=== PATIENT | female | born 1960 | race Caucasian/White ===

== ENCOUNTER 2017-11-25 20:24 | Emergency (ER) | payer OTHER ==
[~2017-11-25] VITALS: Ht 162.6 cm; Wt 119.5 kg
[~2017-11-25 20:24] MED LIST: CLEOCIN300 MG PO; FISH OIL 1,0001 EAC7 PO; MOTRIN IB200 MG PO; PRAVASTATIN SOD10 MG PO
[2017-11-25 20:28] VITALS: BP 156/81
[2017-11-25 22:24] LABS: HEMATOCRIT 43.5 % (36.0-46.0); HEMOGLOBIN 14.8 G/DL (11.9-15.5); MCH 28.2 PG (29.0-34.0); MCV 82.9 FL (83-99); PLATELET COUNT 408 K/uL (156-360); RBC DIS.WIDTH-CV 13.2 % (11.8-14.6); RBC DIS.WIDTH-SD 39.2 % (39-53); RED BLOOD COUNT 5.25 M/uL (3.80-5.20)
[2017-11-25 22:37] LABS: CHLORIDE 108 mEq/L (99-109); POTASSIUM 4.1 mEq/L (3.7-5.4); SODIUM 143 mEq/L (136-147)
[2017-11-25 22:39] LABS: GLUCOSE 116 mg/dL (70-99)
[2017-11-25 22:43] LABS: CREATININE 0.8 mg/dL (0.6-1.3); GFR ESTIMATE (CALCULATED) > 59 mL/min/
[2017-11-25 22:44] LABS: UREA NITROGEN (BUN) 19 mg/dL (9-23)
== END 2017-11-26 00:52 | disposition left against medical advice (07) ==
LOC: EME 20:24
PROVIDERS: Physician Assistant
DX: R22.1 Localized swelling, mass and lump, neck (principal); M54.2 Cervicalgia; E11.9 Type 2 diabetes mellitus without complications; E78.5 Hyperlipidemia, unspecified; Z88.0 Allergy status to penicillin; Z88.1 Allergy status to other antibiotic agents; Z88.8 Allergy status to other drugs, medicaments and biological substances
CPT/HCPCS: 70491; 80048; 85027

== ENCOUNTER 2018-02-13 06:29 | Emergency (ER) | payer OTHER ==
[~2018-02-13] VITALS: Ht 162.6 cm; Wt 114.2 kg
[2018-02-13 07:32] LABS: BASOPHIL (%) 0.7 % (0-1); EOSINOPHIL (%) 1.5 % (0-5); EOSINOPHIL COUNT 0.1 K/uL (0-0.3); HEMATOCRIT 44.5 % (36.0-46.0); HEMOGLOBIN 15.4 G/DL (11.9-15.5); IMMATURE GRANULOCYTE (%) 0.2 % (0.0-0.7); LYMPHOCYTE (%) 23.3 % (15-42); LYMPHOCYTE COUNT 1.4 K/uL (1.0-2.8); MCH 28.2 PG (29.0-34.0); MCHC 34.6 G/DL (30.0-36.0); MCV 81.4 FL (83-99); MONOCYTE (%) 6.8 % (3-12); MONOCYTE COUNT 0.4 K/uL (0-0.8); NEUTROPHIL (%) 67.5 % (45-76); NEUTROPHIL COUNT 3.9 K/uL (1.8-6.4); PLATELET COUNT 441 K/uL (156-360); RBC DIS.WIDTH-CV 13.5 % (11.8-14.6); RBC DIS.WIDTH-SD 39.6 % (39-53); RED BLOOD COUNT 5.47 M/uL (3.80-5.20); WHITE BLOOD COUNT 5.8 K/uL (4.1-10.2)
[2018-02-13 08:07] LABS: CHLORIDE 106 MEQ/L (99-109); CREATININE 0.8 MG/DL (0.6-1.3); GFR ESTIMATE (CALCULATED) > 59 mL/min/; GLUCOSE 129 mg/dL (70-99); POTASSIUM 3.2 MEQ/L (3.7-5.4); SODIUM 138 MEQ/L (136-147); UREA NITROGEN (BUN) 20 mg/dL (9-23)
[2018-02-13 08:08] LABS: C DIFF TOXIN NEGATIVE (NEGATIVE)
[2018-02-13] MEDS ORDERED: ZOFRAN ODT4 MG SL (11:50)
[2018-02-13] MEDS ORDERED: LOMOTIL TABLET1 EACH PO (11:50)
[2018-02-13] MEDS ORDERED: BENTYL20 MG PO (11:50)
[2018-02-13 12:00] VITALS: BP 132/88
== END 2018-02-13 12:15 | disposition home or self-care (01) ==
LOC: EME 06:29
PROVIDERS: Emergency Medicine
DX: K52.9 Noninfective gastroenteritis and colitis, unspecified (principal); E11.9 Type 2 diabetes mellitus without complications; E78.5 Hyperlipidemia, unspecified; Z88.1 Allergy status to other antibiotic agents; Z88.0 Allergy status to penicillin
CPT/HCPCS: 80048; 85025; 87493; 99281; 99285; J1885; J2405; J7030